=== PATIENT | female | born 1975 | race Caucasian/White ===

== ENCOUNTER → 2021-07-19 | Outpatient (CLI) | payer BC ==
--- NOTE | 2021-07-19 12:19 | Diagnostic Imaging Report ---
PROCEDURE: Pelvic comp/transvaginal sonogram. TECHNIQUE: Complete transabdominal and transvaginal pelvic ultrasound was performed. In addition, limited pelvic Doppler was performed. INDICATION: Abnormal uterine bleeding and left-sided pelvic pain. Uterus is anteverted measuring 9.9 x 5.6 x 6.4 cm. Endometrium is 3 mm in thickness. No myometrial mass is detected. Right ovary measures 1.7 x 1.3 x 2.5 cm and the left ovary measures 2.5 x 1.4 x 1.7 cm. There is normal blood flow to the right ovary. There was difficulty documenting flow in the left ovary due to ovarian position. No adnexal mass or free fluid is detected. IMPRESSION: Unremarkable transabdominal and transvaginal pelvic ultrasound. Dictated by: Dictated on workstation # [id number]
== END ==
LOC: RAD 10:47
PROVIDERS: ATTEND Obstetrics & Gynecology
DX: N93.9 Abnormal uterine and vaginal bleeding, unspecified (principal); R10.2 Pelvic and perineal pain
CPT/HCPCS: 76830; 76856

== ENCOUNTER 2021-08-19 06:54 | Outpatient (CLI) | payer BC ==
[~2021-08-19] VITALS: Ht 157.5 cm; Wt 92.0 kg
[2021-08-20] MEDS ORDERED: DESV50TA PO (09:21)
[2021-08-20] MEDS ORDERED: LIRA0.6P SQ (09:21)
[2021-08-20] MEDS ORDERED: MEDR10TA PO (09:21)
[2021-08-20] MEDS ORDERED: LEVO88CA4 PO (09:21)
[2021-08-20] MEDS ORDERED: METF-479 PO (09:21)
[2021-08-20] MEDS ORDERED: VALA500T7 PO (09:21)
== END 2021-08-20 09:56 | disposition home or self-care (01) ==
LOC: PREOP 06:54
PROVIDERS: ATTEND Obstetrics & Gynecology
DX: Z01.818 Encounter for other preprocedural examination (principal)

== ENCOUNTER 2021-08-26 07:24 | Day surgery (SDC) | payer BC ==
[2021-08-26] VITALS (11 sets, daily range): BP systolic 85–115; BP diastolic 56–78
[~2021-08-26] VITALS: Ht 157.5 cm; Wt 92.0 kg
[~2021-08-26 07:24] MED LIST: DESV50TA PO; LEVO88CA4 PO; LIRA0.6P SQ; MEDR10TA PO; METF-479 PO; VALA500T7 PO
[2021-08-26] MEDS ORDERED: BUPIVACAINE 0.25% 30 ML (SENSORCAINE) VIAL ONE (08:13)
[2021-08-26 08:27] LABS: BASOPHILS % (AUTO) 0 % (0-10); EOSINOPHILS % (AUTO) 0 % (0-10); HEMATOCRIT 37 % (35-52); HEMOGLOBIN 12.3 g/dL (11.5-16.0); LYMPHOCYTES % (AUTO) 26 % (12-44); MEAN CORPUSCULAR HEMOGLOBIN 31 pg (25-34); MEAN CORPUSCULAR HGB CONC 33 g/dL (32-36); MEAN CORPUSCULAR VOLUME 94 fL (80-99); MEAN PLATELET VOLUME 11.4 fL (9.0-12.2); MONOCYTES # (AUTO) 0.7 10^3/uL (0.0-1.0); MONOCYTES % (AUTO) 6 % (0-12); NEUTROPHILS # (AUTO) 7.7 10^3/uL (1.8-7.8); NEUTROPHILS % (AUTO) 67 % (42-75); PLATELET COUNT 385 10^3/uL (130-400); WHITE BLOOD COUNT 11.5 10^3/uL (4.3-11.0)
[2021-08-26] MEDS ORDERED: LACTATED RINGERS 1,000 ML IV PRN (08:30)
[2021-08-26] MEDS ORDERED: proPOfol 200 MG/20 ML (DIPRIVAN) VIAL IV ONE (08:32)
[2021-08-26] MEDS ORDERED: LIDOCAINE PF 2% 5 ML (XYLOCAINE) VIAL ONE (08:32)
[2021-08-26] MEDS ORDERED: ONDANSETRON 4 MG/2 ML (SDV) Z0FRAN ONE (08:32)
[2021-08-26] MEDS ORDERED: KETOROLAC 30 MG/ML VIAL ONE (08:32)
[2021-08-26] MEDS ORDERED: MIDAZOLAM 2 MG/2 ML (VERSED) VIAL ONE (08:33)
[2021-08-26] MEDS ORDERED: fentaNYL INJ 100 MCG/2 ML AMP ONE (08:33)
--- NOTE | 2021-08-26 08:40 | Progress Note-Pre Operative ---
Pre-Operative Progress Note H&P Reviewed The H&P was reviewed, patient examined and no changes noted. Date Seen by Provider: Aug 26, 2021 Time Seen by Provider: 08:30 Date H&P Reviewed: Aug 26, 2021 Time H&P Reviewed: 08:30 Pre-Operative Diagnosis: aub, bmi >35 JASKARAN BRITT DO Aug 26, 2021 08:40
[2021-08-26] MEDS ORDERED: IBUP-1773 PO (08:42)
--- NOTE | 2021-08-26 08:42 | Discharge Inst-Women's Service ---
Discharge Inst-Women's Serv Depart Medication/Instructions New, Converted or Re-Newed RX: Transmitted to Pharmacy Problems Reviewed?: Yes Consults/Follow Up Additional Follow Up: Yes Orders/Referrals Dr. Britt in 7-10 days Activity Activity: Activity as Tolerated Driving Instructions: No Driving for 1 Week NO SMOKING: NO SMOKING Nothing Inside Vagina: No Douching, No [place], No Tampons Diet Discharge Diet: No Restrictions Symptoms to Report to : Bleeding Excessive, Pain Increased, Fever Over 101 Degrees F, Vaginal Bleeding Increase, Questions/Concerns For Any Problems or Questions: Contact Your Physician JASKARAN BRITT DO Aug 26, 2021 08:42
[2021-08-26] MEDS ORDERED: D5 LR IV SOLUTION 1,000 ML IV SCH (08:45)
[2021-08-26] MEDS ORDERED: ONDANSETRON 4 MG/2 ML (SDV) Z0FRAN IVP PRN ×2 (08:45→09:15)
[2021-08-26] MEDS ORDERED: KETOROLAC 30 MG/ML VIAL IVP ONE (08:45)
[2021-08-26] MEDS ORDERED: HYDROcodone/APAP 5 MG/325 MG (LORTAB) TAB PO PRN (08:45)
[2021-08-26] MEDS ORDERED: SEVOFLURANE (ULTANE) 15 ML INHAL SOLN ONE (09:02)
[2021-08-26] MEDS ORDERED: MEPERIDINE (DEMEROL) INJ 50 MG/ML IVP ONE (09:15)
[2021-08-26] MEDS ORDERED: morphine INJ 10 MG/ML 1ML (SYR OR VIAL) IVP ONE (09:15)
--- NOTE | 2021-08-26 12:17 | Anesthesia-General Post-Op ---
General Patient Condition Mental Status/LOC: Same as Preop Cardiovascular: Satisfactory Nausea/Vomiting: Absent Respiratory: Satisfactory Pain: Controlled Complications: Absent Post Op Complications Complications None Follow Up Care/Instructions Patient Instructions None needed. Anesthesia/Patient Condition Patient Condition Patient is doing well, no complaints, stable vital signs, no apparent adverse anesthesia problems. No complications reported per nursing. MIRIAN SANCHEZ CRNA Aug 26, 2021 12:17
--- NOTE | 2021-08-27 00:35 | OPERATIVE REPORT ---
DATE OF SERVICE: PREOPERATIVE DIAGNOSES: 1. A 45-year-old female with abnormal uterine bleeding. 2. BMI greater than 35. POSTOPERATIVE DIAGNOSES: 1. A 45-year-old female with abnormal uterine bleeding. 2. BMI greater than 35. PROCEDURE: D and C. SURGEON: Jaskaran Britt DO ANESTHESIA: LMA general. ESTIMATED BLOOD LOSS: Minimal. URINE OUTPUT: 200 mL drained at start of procedure. FLUIDS: 800 mL lactated Ringer's solution. FINDINGS: A bulky palpating uterus sounding to a depth of 10 cm. Grossly normal-appearing external female genitalia. SPECIMEN SENT: Endometrial curettings. INDICATIONS FOR PROCEDURE: This 45-year-old female is a patient who is consulted to my office for abnormal uterine bleeding. In the office, we discussed her ultrasound findings and the need for endometrial biopsy due to her body habitus and age. Risk of endometrial biopsy in the office versus D and C reviewed with the patient in detail the potential curative properties of doing a D and C under anesthesia and due to the potential curative factors of doing a D and C under anesthesia, she opted to go with this route. Risks of the procedure were discussed with the patient in detail and after all of her questions were answered in the preoperative area, consent was obtained, the patient was taken to the operating room. OPERATIVE REPORT IN DETAIL: Once in the operating room, anesthesia was found to be adequate, placed in dorsal lithotomy position, prepped and draped in normal sterile fashion. Timeout was performed and the bladder was drained using straight catheterization. Weighted speculum was inserted to the patient's vagina. Right angle retractor was used to visualize the cervix, which was grasped at 12 o'clock position using a long Allis clamp. I then performed a paracervical block at 3 and 9 o'clock positions on the cervix. Care was taken to aspirate for injecting 5 mL of 0.25% Marcaine injected into each site. I then gently sound the uterine cavity, depth was found to be approximately 10 cm. I then gently dilated the cervix using Hanks dilators to maximum dilatation approximately 1.2 cm, at which point I performed a gentle curettage of all endometrial surfaces until a gentle uterine cry is appreciated. All the tissue was collected as endometrial curettings. I then removed all the instruments from the patient's vagina. The patient tolerated the procedure well and he was taken to recovery area in stable condition. Lap and sponge counts were correct at the end of the procedure. Instrument counts correct as well. Job ID: [id number] DocumentID: [id number] Dictated Date: 08/26/2021 09:32:49 Head Batcher Date: 08/26/2021 17:13:46 Dictated By: JASKARAN BRITT DO
== END 2021-08-26 11:05 | disposition home or self-care (01) ==
LOC: SDC 07:24
PROVIDERS: ATTEND Obstetrics & Gynecology
DX: N93.8 Other specified abnormal uterine and vaginal bleeding (principal); N84.0 Polyp of corpus uteri; E11.9 Type 2 diabetes mellitus without complications; E66.9 Obesity, unspecified; Z79.84 Long term (current) use of oral hypoglycemic drugs; Z68.37 Body mass index [BMI] 37.0-37.9, adult; Z98.51 Tubal ligation status; Z79.899 Other long term (current) drug therapy
CPT/HCPCS: 36415; 82947; 84703; 85025; 86850; 86900; 86901; 87081